=== PATIENT | female | born 1985 | race Caucasian/White ===

== ENCOUNTER 2017-01-22 22:31 | Emergency (ER) | payer OTHER ==
[~2017-01-22] VITALS: Ht 195.6 cm; Wt 145.4 kg
[~2017-01-22 22:31] MED LIST: DESO1TAB PO; DOMPERIDONE PO; ESOM40CA41 PO; IMI25 PO; LACT PO; OXYC1TAB24 PO; PROM25TA14 PO
[2017-01-22 22:39] VITALS: BP 148/90; PULSE 109; RESP 16; O2SAT 95
[2017-01-22 23:32] LABS: BASOPHILS % (AUTO) 0.3 % (0-3); EOSINOPHILS % (AUTO) 2.2 % (0-5); MONOCYTES % (AUTO) 7.9 % (4-12); Mean Corpuscular Hemoglobin 23.4 pg (27.0-35.0); NEUTROPHILS % (AUTO) 56.9 % (40-74); Platelet Count 291 bil/L (150-400)
[2017-01-22 23:57] LABS: Magnesium 1.9 mg/dL (1.6-2.6)
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
[2017-01-23] MEDS ORDERED: 0.9% Sodium Chloride 1,000 ML IV ONE (00:27)
[2017-01-23] MEDS ORDERED: Ondansetron 2 mg/mL 2 mL Inj IVPUSH PRN (00:30)
[2017-01-23] MEDS ORDERED: HYDROmorphone 0.5 mg/0.5 mL iSecure Syringe IVPUSH PRN (00:30)
[2017-01-23] MEDS ORDERED: HYDROmorphone 1 mg/mL Inj IVPUSH PRN (00:50)
[2017-01-23] MEDS ORDERED: Iohexol 300 mg/mL 30 mL Inj PO ONE (01:10)
[2017-01-23 02:32] VITALS: BP 106/72; PULSE 99; RESP 18; O2SAT 98
--- NOTE | 2017-01-23 09:44 | DRSVH ---
PROCEDURE: CT ABDOMEN AND PELVIS WITH CONTRAST ([id number]) INDICATIONS: pain and vomiting after Botox gastro-outlet inj TECHNIQUE: After the administration of oral and intravenous contrast, 5 mm thick sections acquired from the diap hragms to the symphysis. 5 mm thick coronal and sagittal reformats were performed. For radiation do se reduction, the following was used: automated exposure control, adjustment of mA and/or kV accordi ng to patient size. COMPARISON: [facility], CT, CT ABD PELVIS W CON, 12/25/2015, 17:27. FINDINGS: Image quality: Excellent. ABDOMEN: Lung bases: Lung bases are clear. Heart size is normal. Solid organs: Liver is enlarged with steatosis. The spleen is mildly prominent in size with normal e nhancement. Gallbladder has been. Biliary system is non-dilated. Pancreas enhances normally. No a drenal nodules. The left kidney has normal in size and enhancement, without hydronephrosis. The righ t kidney has been removed. Peritoneum and bowel: Stomach, small bowel, and colon loops are normal in caliber and wall thickness . No free fluid or air. Partial right colectomy is noted. Nodes and vessels: No retroperitoneal or mesenteric adenopathy. Aorta and inferior vena cava are no rmal in caliber. Miscellaneous: No ventral hernias. PELVIS: Genitourinary: Bladder wall thickness is normal. Miscellaneous: No inguinal hernias or adenopathy. Bones: No suspicious bony lesions. No vertebral body compression fractures. IMPRESSION: 1. Mild hepatosplenomegaly with hepatic steatosis. 2. No acute abdominal or pelvic process. Dictated by: Sasha Diallo M.D. on 01/23/2017 at 9:39 Approved by: Sasha Diallo M.D. on 01/23/2017 at 9:43
== END 2017-01-23 02:30 | disposition home or self-care (01) ==
LOC: SED 22:31
DX: R10.13 Epigastric pain (principal); R11.0 Nausea; R42 Dizziness and giddiness; R73.9 Hyperglycemia, unspecified; R55 Syncope and collapse; Z90.49 Acquired absence of other specified parts of digestive tract; Z88.2 Allergy status to sulfonamides; Z88.8 Allergy status to other drugs, medicaments and biological substances; Z91.048 Other nonmedicinal substance allergy status; Z90.5 Acquired absence of kidney
CPT/HCPCS: 36415; 74177; 80053; 81025; 82948; 83690; 83735; 85025; 96361; 96374; 96375; 99285; J1170; J2405; J7030; Q9967